=== PATIENT | female | born 1960 | race Caucasian/White ===

== ENCOUNTER 2016-06-25 09:46 | Inpatient (IN) | payer MEDICARE, MEDICAID ==
[2016-06-25 11:00] VITALS: BP 118/73
[2016-06-25] MEDS ORDERED: Maalox 30 mL Cup PO PRN (11:00)
[2016-06-25] MEDS ORDERED: Magnesium Hydroxide (MOM) 30 mL UDC PO PRN (11:00)
--- NOTE | 2016-06-25 13:56 | History & Physical ---
ADMIT DATE: 06/25/2016 IDENTIFYING INFORMATION: The patient is a 55-year-old female. CHIEF COMPLAINT: "No, I don't know." HISTORY OF PRESENT ILLNESS: The patient apparently was referred by Dr. Francisco from the Emergency Room at [facility]. She was brought by her son because of agitation. The patient unable to recognize her family. She has no memory whatsoever for anything, unable to participate in a meaningful conversation. I asked her many questions for which she could not answer. She could not tell me her age. She said she is in her 50s. She has 2 children. She said the boy and a girl and could not tell me their age and could not tell me how far she went to school, what did she do for living. She said that has dementia, was unable to give me more details. She reported no substance abuse; however, she is not a reliable historian. She does not know the date, where she is, why she is here. She reports she does not sleep. Appetite, does not know how she eats. Apparently she lives in [facility] she said, but she could not identify exactly who she lives with, apparently she has been living with her son or someone to help with her. Dr. Francisco actually felt that patient, because of her dementia and agitation, needed to be in the hospital to be monitored. PAST PSYCHIATRIC HISTORY: Dementia. ALLERGIES: The patient has no known drug allergies. CURRENT MEDICATIONS: Multivitamins and as needed medications. FAMILY AND SOCIAL HISTORY: The patient reports that she is , unable to tell me how long, but she has 2 children, a boy and a girl, but cannot tell me their age, cannot tell me how far she went to school and if there is any family psychiatric disorder, suicide or substance abuse, very confused. She reports no substance abuse, but not a reliable historian. MENTAL STATUS EXAMINATION: The patient is appropriately dressed, appropriately groomed. Her mood is depressed. Affect is constricted. Thoughts are very concrete, fragmented, unable to tell me her exact age, her date of , where she is, why she is here, unable to make safe plan for self-care. She is demented, confused and reportedly according to Dr. Francisco, I called on the phone, has been getting agitated and her son is concerned about her. She was unable to answer questions ____ suicide, homicide. She has no insight about whatsoever about her condition, but she said she had dementia, but I am not sure if she really understands what it means, cannot take care of her ADLs or herself. Her insight and judgment is impaired. Long and short term memory is poor. IMPRESSION: AXIS I: Dementia with behavior disturbances and psychosis, not otherwise specified. Her assets, she is accepting treatment. Negative poor coping skills. INITIAL TREATMENT PLAN: The patient will be started on Aricept. We will rule out organic causes. I will also ask for neuro consult and do group therapy, milieu therapy, individual therapy. ESTIMATED LENGTH OF STAY: 3-7 days. DISCHARGE CRITERIA: Decreasing agitation, confusion and was worked up for her symptoms. Feeling better. After discharge, outpatient treatment. JOB# [id number]
[2016-06-26] MEDS: Multivitamin Tab PO SCH (08:55)
--- NOTE | 2016-06-27 05:25 | Progress Notes ---
DATE: 06/26/2016 Case was discussed with staff of the patient, reviewed records. The patient continues to have poor memory, she was we talked for a long time yesterday. She is still unpredictable, impulsive, demented, confused. She has no memory of anything. She does not know where she is, why she is here. According to the family, apparently she has been on medication and she has not taken it for a while and so far. I did initiate her on Aricept, also get a Neurology consult by Dr. Freed, and we will continue to work with the patient in group therapy, milieu therapy, and adjust the medication as needed. JOB# [id number]
[2016-06-27] MEDS: Multivitamin Tab PO SCH (08:12)
--- NOTE | 2016-06-28 00:10 | History & Physical ---
ADMIT DATE: 06/25/2016 ADMITTING PHYSICIAN: Dr. Francisco. REASON FOR ADMISSION: Psychiatric disorder. HISTORY OF PRESENT ILLNESS: This is a 55-year-old female who was admitted to [facility] for evaluation of the psychiatric disorders by Dr. Francisco. Dr. Francisco requested medical H and P for this patient. The patient's ____ states that she is doing fine. The patient keeps repeating that "I have dementia." She denies any other medical complaints or concerns. She is a poor historian. PAST MEDICAL HISTORY: None reported. PAST SURGICAL HISTORY: None reported. SOCIAL HISTORY: Lives at home. No reported alcohol, tobacco or street drug use. CURRENT MEDICATIONS: As per the medication reconciliation list reviewed. ALLERGIES: No known drug allergy reported. REVIEW OF SYSTEMS: The patient denies any fever, no chills. No abdominal pain, no nausea, no vomiting, no diarrhea, no constipation, no back pain, no neck pain or any other complaints. Denies any urinary symptoms PHYSICAL EXAMINATION: VITAL SIGNS: Temperature 97.4, pulse 87, respirations 20, blood pressure 126/77, oxygen 98% on room air. Pain 0/10. GENERAL APPEARANCE: The patient does not seem in acute distress. CARDIOVASCULAR: S1, S2 normal. LUNGS: Clear to auscultation bilaterally. ABDOMEN: Soft, nontender. No distention noted. NEUROLOGIC: The patient is awake, somewhat confused, but able to follow commands well, moves all extremities. Grossly nonfocal. ____. ASSESSMENT: 1. Normal history and physical. 2. Questionable dementia. 3. Psychiatric disorder. PLAN: The patient will be continued on current psychotropic medications. Psych eval per psychiatrist. The patient has been medically stable to participate in activity at the [facility]. Thank you, Dr. Francisco for allowing me to participate in the care of this patient. [facility]# [id number]
--- NOTE | 2016-06-28 04:01 | Progress Notes ---
DATE: 06/27/[address] Francisco. Case was discussed with staff of the patient, reviewed records. I did ask for a neuro consultation from Dr. Freed, so the consultation has been put in the system yet, but she has not seen him yet. The patient was started on Aricept. The patient continues to have no clue about why she is here, where she is. She cannot tell me the date, her age or any information about her. Very confused, demented. Apparently, she has been on medication; however, the family did not bring me a list and so far no side effects with the Aricept. We will continue to work with the patient in group therapy, milieu therapy, and adjust the medication as needed. JOB# [id number]
[2016-06-28] MEDS: Multivitamin Tab PO SCH (08:57)
[2016-06-28 09:25] LABS: ALB/GLOB RATIO 1.3 (1.0-1.8); ALKALINE PHOSPHATASE 61 U/L (34-104); ANION GAP 7.3 (7.0-16.0); BILIRUBIN,TOTAL 0.4 mg/dL (0.3-1.0); BUN - UREA NITROGEN 7 mg/dL (7-25); BUN/CREATININE RATIO 11.7; CALCIUM SERUM 9.6 mg/dL (8.6-10.3); CARBON DIOXIDE 28.2 mEq/L (21.0-31.0); CHLORIDE 105 mEq/L (98-107); CREATININE - SERUM 0.6 mg/dL (0.6-1.2); GLUCOSE 116 mg/dL (70-105); POTASSIUM SERUM 3.5 mEq/L (3.5-5.1); SGOT 17 U/L (13-39); SGPT/ALT 16 U/L (7-52); SODIUM SERUM 137 mEq/L (136-145)
--- NOTE | 2016-06-29 03:11 | Progress Notes ---
DATE: 06/28/[address] Francisco. Case was discussed with staff of the patient, reviewed records. The patient continues to be very confused, demented, unable to participate in meaningful conversation or make safe plan for self-care, continues to have poor insight. Still cannot tell me her age, date of , where she is and why she is here. She continues to be unpredictable, impulsive with episodes of agitation. No side effects with the medication, no sedation and no nausea. I did ask for neuro consult; however, that is still pending from Dr. Freed and we will continue to work with the patient in group therapy, milieu therapy and adjust medications as needed. JOB# [id number]
[2016-06-29] MEDS: Multivitamin Tab PO SCH (08:25)
--- NOTE | 2016-06-30 01:54 | Progress Notes ---
DATE: 06/29/2016 SUBJECTIVE: Chart reviewed and the patient interviewed. Also discussed the patient's condition with the staff and reviewed records and labs. Also discussed the patient's condition with the patient's sister. The patient is still confused and forgetful. The patient also was not able to tell me even how many children she has or the names of her children. She is also confused about who is living with her at home. The patient also did not know today's date or where she is at. On the other hand, the patient continued to comply with taking her medications and she seems to be calm and less agitated and less aggressive, but still forgetful and confused. Discussed with the patient's sister the patient's condition and the patient's sister indicated that the patient has appointment to see a neurologist on 07/12/2016. Also discussed with her placement issue and discharge plans and the patient's sister is trying to get to a board and care facility for the patient. ASSESSMENT: The patient is still confused and considered to be gravely disabled. TREATMENT PLAN: We will increase Namenda to 10 mg twice a day and we will continue Aricept. Also, I ordered MRI of the brain with and without contrast. Also, neuro consult was ordered since last Monday and it was not done yet that is why I ordered an MRI of the brain and also instructed the staff to check and see when the neuro consults can be done. All those issues discussed with the patient's sister who agreed with the treatment plan and will follow up with these plans. JOB# [id number]
[2016-06-30] MEDS: Multivitamin Tab PO SCH (08:32)
[2016-06-30] MEDS ORDERED: IOHEXOL 300MG/ML 100 ML VIAL PO ONE (10:45)
[2016-06-30 11:56] LABS: ALB/GLOB RATIO 1.4 (1.0-1.8); ALKALINE PHOSPHATASE 61 U/L (34-104); BILIRUBIN,TOTAL 0.3 mg/dL (0.3-1.0); BUN - UREA NITROGEN 9 mg/dL (7-25); CALCIUM SERUM 9.4 mg/dL (8.6-10.3); CARBON DIOXIDE 28.6 mEq/L (21.0-31.0); CHLORIDE 108 mEq/L (98-107); CREATININE - SERUM 0.5 mg/dL (0.6-1.2); GLUCOSE 83 mg/dL (70-105); POTASSIUM SERUM 3.6 mEq/L (3.5-5.1); SGOT 17 U/L (13-39); SGPT/ALT 14 U/L (7-52); SODIUM SERUM 136 mEq/L (136-145)
--- NOTE | 2016-06-30 13:54 | Diagnostic Imaging Report ---
CT scan of the brain with and without intravenous contrast HISTORY: Memory loss, dizziness Total DLP equals 1161 CTDI equals 67.0 Axial sections were obtained from the base of the skull to the vertex before and after administration of intravenous contrast. There is a normal ventricular system size for age. Slight prominence of cerebral sulci and subarachnoid cisterns reflecting mild cerebral atrophy. No acute parenchymal abnormalities. No intracerebral hemorrhage. No mass effect or shift of midline structures. No extra-axial masses or abnormal fluid collections. Normal enhancement of the major vascular structures within the brain. No focal abnormalities. No aneurysms or vascular malformations. IMPRESSION: 1. No acute abnormalities 2. Mild cerebral atrophy
--- NOTE | 2016-06-30 21:47 | Progress Notes ---
DATE: 06/30/2016 SUBJECTIVE: Chart reviewed and the patient interviewed. Also, discussed the patient's condition with the staff and reviewed records and labs. The patient is still confused and forgetful. The patient also still needs lots of redirections. The patient also still has periods of severe anxiety and depression. Otherwise, the patient is compliant with taking her medications and cooperative with her treatment. ASSESSMENT: The patient is still confused. TREATMENT PLAN: I discussed with the patient's sister her prognosis and our treatment plan. MRI was ordered yesterday and the neuro consult is still pending. At the same time, we will continue to work on her confusion and I increased the Namenda yesterday. Also, discussed with the patient's sister a placement issue and they are arranging for her to go to a board and care facility. JOB# [id number]
[2016-07-01] MEDS: Multivitamin Tab PO SCH (09:17)
--- NOTE | 2016-07-01 20:11 | Discharge Summary ---
DATE OF DISCHARGE: 07/01/2016 FINAL AND PRIMARY DIAGNOSIS: Dementia, moderate, with psychotic features. REASON FOR HOSPITALIZATION: The patient was admitted to the hospital from [facility] Emergency Room because the patient has been confused and forgetful to the point that she was not able to remember her family names and she was ignoring her hygiene and eating and she was ____, paranoid and acting bizarre. HOSPITAL COURSE: The patient was started on Namenda and the dose increased to 10 mg twice a day. The patient also continued to be confused and forgetful. Discussion with the patient's sister ____ that the patient will go to a [facility]. Also, a neuro consult ordered but was not done and CAT scan was done and came back with mild peripheral atrophy. Otherwise, the rest of the blood work and physical exam was basically within normal. The patient was still forgetful, but was not agitated or irritable. Physical exam, the patient came as mentioned with no acute problems. CAT scan was done and came, that was mild separate atrophy; otherwise, normal. AFTER-DISCHARGE PLANS: The patient discharged from the hospital with her sister, was planned to follow up as an outpatient and also the patient's sister said that the patient has a neuro consult to be done on ____ with a neurologist in [place]. DISCHARGE ACTIVITY: As tolerated. DISCHARGE DIET: Regular. DISCHARGE PSYCHOTROPIC MEDICATIONS: Namenda 10 mg twice a day. EXPECTED OUTCOME AFTER DISCHARGE: Fair in regard to her physical health and guarded in regard to her memory. [facility]# [id number]
== END 2016-07-01 12:00 | disposition home or self-care (01) | DRG 884 ==
LOC: GERO 09:46
PROVIDERS: ADMIT Psychiatry & Neurology Psychiatry; ATTEND Psychiatry & Neurology Psychiatry
DX: F03.91 Unspecified dementia, unspecified severity, with behavioral disturbance (principal); R41.0 Disorientation, unspecified
CPT/HCPCS: 36415-UA; 70470-TC; 80053-TC; 84443-TC; 90899; G0410; Q9967; Z7610